=== PATIENT | male | born 1985 | race Caucasian/White ===

== ENCOUNTER → 2017-05-14 | Outpatient (CLI) | payer BC ==
[~2017-05-14] MED LIST: ATIVAN0.5 MG PO; SUBUTEX2 MG SL
== END ==
LOC: COL.RAD 10:10
DX: R10.33 Periumbilical pain (principal); R06.2 Wheezing

== ENCOUNTER → 2017-05-23 | Outpatient (CLI) | payer BC | LOC: COL.RAD 08:20 | DX: R10.33 Periumbilical pain (principal) | CPT/HCPCS: A9537; J2805 ==